=== PATIENT | female | born 1955 | race Caucasian/White ===

== ENCOUNTER 2017-11-18 12:52 | Emergency (ER) | payer OTHER ==
[~2017-11-18] VITALS: Ht 172.7 cm; Wt 74.8 kg
[2017-11-18] MEDS ORDERED: TETRACAINE 0.5% OPHTH SOLUTION 4ML BOTTLE. OS ONE (14:00)
[2017-11-18] MEDS ORDERED: FLUORESCEIN 1MG EYE STRIP. OS ONE (14:00)
--- NOTE | 2017-11-18 14:31 | RAD ---
CT MAXILLOFACIAL WITHOUT CONTRAST History: left eye trauma. Eval for foreign body. Technique: Axial helical images through the orbits were obtained without contrast. Axial and coronal reconstruction was performed. Findings: The orbits are normal. The globes are intact. There is no acute facial bone fracture. Left maxillary sinus small mucous retention cyst. Mild left maxillary sinus mucosal thickening. The paranasal sinuses are otherwise clear. The nasal septum is mostly midline. The ostiomeatal complexes are narrow but patent. The visualized portions of the brain are normal in appearance. IMPRESSION: No evidence of orbital trauma. No radiopaque foreign body. PQRS Compliance Statement: One or more of the following individualized dose reduction techniques were utilized for this examination: 1. Automated exposure control 2. Adjustment of the mA and/or kV according to patient size 3. Use of iterative reconstruction technique
--- NOTE | 2017-11-18 14:39 | PHYS DOC ---
Past History Past Medical History: No Pertinent History Past Surgical History: Other Alcohol Use: None Drug Use: None Adult General Chief Complaint Chief Complaint: EYE PROBLEMS HPI HPI 61-year-old female presenting to the emergency department today after being hit in the left eye with a bungee cord. She reports "cloudy vision". She reports that her vision is "normal, but just a bit cloudy". She denies losing consciousness. She denies diplopia. This happened prior to arrival. She has mild pain in the eye that is nonradiating intermittent and without alleviating factors. She denies any other injuries. Review of systems is negative for chest pain neck pain headache or any other injuries. All other review of systems is negative unless otherwise noted in history of present illness. ED course: 61-year-old female presenting to the emergency department after having a traumatic injury to her left eye. Examination not suggestive of open globe. CT of the orbit shows no evidence of retained foreign body. I discussed the case with our on-call eye doctor hospice music therapy olinda hendricks taking call for school guidance counselor Dr. Padilla. I communicated the patient's presentation and examination thus far. Collectively, she agrees with the plan and desires to see the patient tomorrow morning at 9 AM. Patient can show up in clinic without calling. The patient was then discharged home in stable condition to follow up with their primary care physician over the next 2-3 days. They were to return if their symptoms worsened or if they were concerned for any reason. Face-to- face discharge instructions and return precautions were given. Patient's questions were answered to their satisfaction. Patient states that she does not want to follow-up with an eye doctor tomorrow morning because she has to work. I offered the patient a work note to enable her to be referred to the eye doctor on a semiurgent basis. The patient declines. I also offered to refer the patient to a different eye doctor locally which the patient also states that she does not want. I again reinforced the importance of her eye and referral to the specialist. I explained that the purpose of referral is to evaluate further and by not following up with the eye doctor she is putting her vision and disability at risk. To be clear, the patient could become blind or disabled because she is choosing not to follow-up with the specialist. Patient demonstrates verbal understanding to this and has medical decision-making capacity. I am unable to convince the patient that she should be referred to the specialist for this condition. Review of Systems Review of Systems SEE ABOVE. Current Medications Current Medications Current Medications Medications (Trade) Dose Ordered Sig/Swathi Start Time Stop Time Status Last Admin Dose Admin Fluorescein Sodium (Ful-Manda 1mg) 1 strip 1X ONCE 11/18/17 14:00 11/18/17 14:01 DC 11/18/17 13:33 1 STRIP Tetracaine HCl (Tetracaine) 1 drop 1X ONCE 11/18/17 14:00 11/18/17 14:01 DC 11/18/17 13:33 1 DROP Allergies Allergies Allergies Coded Allergies Type Severity Reaction Last Updated Verified No Known Drug Allergies 11/18/17 No Physical Exam Physical Exam SEE ABOVE Constitutional: Well developed, well nourished, no acute distress, non-toxic appearance. [] HENT: Normocephalic, atraumatic, bilateral external ears normal, oropharynx moist, no oral exudates, nose normal. [] Eyes: Eye Exam w/ slit lamp: Visual Acuity: see nursing notes 20/30 bilaterally Visual [place]: Intact in all four quadrants bilaterally Lac ducts/glands: No swelling Lids w/ evertion: Normal, no foreign body Conj/Viola: Patient has left eye has clear conjunctiva except in 1 location where she has mild, small amount of hemorrhage of the conjunctiva in the 4 to 5 o'clock position., negative Fluorescein/Chi's. Chi's negative without any forcing uptake. Anterior Chamber: Clear, no cells and flare, pupil is slightly larger in the left eye than the right. Anisocoria present. Both pupils are reactive and symmetric in shape. Retina exam: No obvious abnormality without dilation. Neck: Normal range of motion, no tenderness, supple, no stridor. Cardiovascular:Heart rate regular rhythm, no murmur [] Lungs & Thorax: Bilateral breath sounds clear to auscultation Abdomen: Bowel sounds normal, soft, no tenderness, no masses, no pulsatile masses. [] Skin: Warm, dry, no erythema, no rash. [] Back: No tenderness, no CVA tenderness. Extremities: No tenderness, no cyanosis, no clubbing, ROM intact, no edema. [] Neurologic: Alert and oriented X 3, normal motor function, normal sensory function, no focal deficits noted. Psychologic: Affect normal, judgement normal, mood normal. [] Current Patient Data Vital Signs Vital Signs Date Time Temp Pulse Resp B/P (MAP) Pulse Ox O2 Delivery O2 Flow Rate FiO2 11/18/17 13:05 97.4 86 16 95 Room Air EKG EKG [] Radiology/Procedures Radiology/Procedures [] Course & Med Decision Making Course & Med Decision Making Pertinent Labs and Imaging studies reviewed. (See chart for details) [] Dragon Disclaimer Dragon Disclaimer This electronic medical record was generated, in whole or in part, using a voice recognition dictation system. Departure Departure: Impression: Primary Impression: Eye injuries Disposition: HOME, SELF-CARE Condition: STABLE Referrals: OSITO KIM MD (PCP) Patient Instructions: Eye Injury-Brief Additional Instructions: Thank you for allowing us to participate in your care today. Followup with Dr. Olinda Hendricks for eye referral tomorrow morning at 9am. You do not need to make an appointment. Just arrive at 9 AM at their office. Her office is at [address] [place] [address] [address] [address]. If you have any questions you may call [phone]. Call your Primary Doctor tomorrow and inform them of your visit today. If you do not have a primary care provider you can ask for a list of our primary care providers. Return to the emergency department you have any new or concerning findings. This should be evaluated by the primary care physician and any necessary consulting services for continued management within a few days after discharge. Return to emergency room if you have any new or concerning symptoms including but not limited to fever, chills, nausea, vomiting, intractable pain, any new rashes, chest pain, shortness of air, uncontrolled bleeding, difficulty breathing, and/or vision loss. MAIKOL CASTRO MD Nov 18, 2017 14:39
[2017-11-18 14:44] VITALS: BP 135/75
== END 2017-11-18 14:44 | disposition home or self-care (01) ==
LOC: ER 12:52
DX: S05.92XA Unspecified injury of left eye and orbit, initial encounter (principal); W22.8XXA Striking against or struck by other objects, initial encounter; Y93.89 Activity, other specified; Y99.8 Other external cause status; Y92.89 Other specified places as the place of occurrence of the external cause
CPT/HCPCS: 70480; 99284-25

== ENCOUNTER → 2020-06-01 | Outpatient (CLI) | payer OTHER | END | disposition home or self-care (01) | LOC: LAB 13:54 | PROVIDERS: ATTEND Internal Medicine Cardiovascular Disease | DX: Z20.828 Contact with and (suspected) exposure to other viral communicable diseases (principal) | CPT/HCPCS: C9803; U0003; 36415 ==

== ENCOUNTER → 2020-06-09 | Outpatient (CLI) | payer OTHER | END | disposition home or self-care (01) | LOC: LAB 09:28 | PROVIDERS: ATTEND Internal Medicine Cardiovascular Disease | DX: Z20.828 Contact with and (suspected) exposure to other viral communicable diseases (principal) | CPT/HCPCS: C9803; U0003; 36415 ==

== ENCOUNTER → 2020-07-21 | Outpatient (CLI) | payer OTHER | END | disposition home or self-care (01) | LOC: LAB 05:38 | PROVIDERS: ATTEND Internal Medicine Cardiovascular Disease | DX: Z20.828 Contact with and (suspected) exposure to other viral communicable diseases (principal) | CPT/HCPCS: U0003-CS ==

== ENCOUNTER → 2020-09-15 | Outpatient (CLI) | payer OTHER ==
--- NOTE | 2020-09-16 13:53 | RAD ---
DATE: 09/15/2020 1:40 PM EXAM: MAMMO YANELSI SCREENING BILATERAL HISTORY: Screening COMPARISON: None. This is a baseline. Bilateral CC and MLO views of the breasts were performed. Bilateral breast tomosynthesis was performed in CC and MLO projections. This study was interpreted with the benefit of Computerized Aided Detection (CAD). FINDINGS: Breast Density: HETERO The breast parenchyma Is heterogeneously dense, which could reduce sensitivity of mammography. Breast parenchyma level C No suspicious masses, microcalcifications or architectural distortion is present to suggest malignancy in either breast. The visualized axillae are unremarkable. IMPRESSION: No mammographic evidence of malignancy. BI-RADS CATEGORY: 1 NEGATIVE RECOMMENDED FOLLOW-UP: 12M 12 MONTH FOLLOW-UP Annual screening mammography is recommended, unless clinically indicated sooner based on symptoms or change in physical exam. PQRS compliance statement: Patient information was entered into a reminder system with a target due date for the next mammogram. Mammography is a sensitive method for finding small breast cancers, but it does not detect them all and is not a substitute for careful clinical examination. A negative mammogram does not negate a clinically suspicious finding and should not result in delay in biopsying a clinically suspicious abnormality. "Our facility is accredited by the [employer] Mammography Program."
== END ==
LOC: RAD 13:29
PROVIDERS: ATTEND Family Medicine
DX: Z12.31 Encounter for screening mammogram for malignant neoplasm of breast (principal)
CPT/HCPCS: 77063; 77067

== ENCOUNTER → 2020-09-29 | Outpatient (CLI) | payer OTHER | LOC: LAB 14:50 | PROVIDERS: ATTEND Internal Medicine Cardiovascular Disease | DX: Z20.828 Contact with and (suspected) exposure to other viral communicable diseases (principal) | CPT/HCPCS: U0003 ==

== ENCOUNTER → 2020-10-17 | Outpatient (CLI) | payer OTHER | LOC: LAB 11:02 | PROVIDERS: ATTEND Internal Medicine Cardiovascular Disease | DX: Z20.828 Contact with and (suspected) exposure to other viral communicable diseases (principal) | CPT/HCPCS: U0003 ==

== ENCOUNTER → 2020-10-24 | Outpatient (CLI) | payer OTHER | LOC: LAB 10:09 | PROVIDERS: ATTEND Internal Medicine Cardiovascular Disease | DX: Z20.828 Contact with and (suspected) exposure to other viral communicable diseases (principal) | CPT/HCPCS: U0003 ==